=== PATIENT | female | born 1985 | race Two or more races ===

== ENCOUNTER 2018-04-04 17:06 | Inpatient (IN) | payer MEDICAID, OTHER ==
[~2018-04-04] VITALS: Ht 162.6 cm; Wt 84.7 kg
[2018-04-04] MEDS ORDERED: LABETALOL 5MG/ML, 20ML ONE (17:09)
[2018-04-04 17:26] LABS: BASOPHILS # (AUTO) 0.07 x10^3/uL (0-0.1); BASOPHILS % (AUTO) 1 % (0-1); EOSINOPHILS # (AUTO) 0.07 x10^3/uL (0-0.4); EOSINOPHILS % (AUTO) 1 % (1-7); LYMPHOCYTES # (AUTO) 3.43 x10^3/uL (1-3.4); LYMPHOCYTES % (AUTO) 27 % (22-44); MD NO; MEAN CORPUSCULAR HEMOGLOBIN 30.3 pg (27.0-34.8); MEAN PLATELET VOLUME 7.5 fL (7.4-10.4); MONOCYTES # (AUTO) 0.32 x10^3/uL (0.2-0.8); MONOCYTES % (AUTO) 3 % (2-9); NEUTROPHILS # (AUTO) 9.03 x10^3/uL (1.8-6.8); NEUTROPHILS % (AUTO) 70 % (42-75); PLATELET COUNT 371 x10^3/uL (130-400); RED BLOOD COUNT 5.47 x10^6/uL (3.82-5.3); RED CELL DISTRIBUTION WIDTH 13.4 % (9.6-15.2)
[2018-04-04] MEDS ORDERED: PLEASE ENTER ALLERGIES MC SCH (17:30)
[2018-04-04] MEDS ORDERED: PLEASE ENTER HEIGHT AND WEIGHT MC SCH (17:30)
[2018-04-04] MEDS ORDERED: LABETALOL 5MG/ML, 20ML IVPush ONE ×2 (17:30)
[2018-04-04] MEDS ORDERED: OMNIPAQUE 350 MG/ML, 100ML BOTTLE ONE (17:36)
[2018-04-04 17:41] LABS: INTERNATIONAL NORMALIZED RATIO 0.94 (0.93-1.1); PROTHROMBIN TIME 9.7 Seconds (9.6-11.5)
[2018-04-04] MEDS ORDERED: MECLIZINE CHEWABLE 25 MG TAB ONE (18:29)
[2018-04-04] MEDS ORDERED: MECLIZINE CHEWABLE 25 MG TAB PO ONE (18:30)
[2018-04-04] MEDS ORDERED: SODIUM CHLORIDE 0.9% 1,000 ML IV ONE (19:10)
[2018-04-04] MEDS ORDERED: morphine SULFATE 10 MG/ML, 1ML IVPush PRN (20:00)
[2018-04-04] MEDS ORDERED: ACETAMINOPHEN 650 MG SUPP PR PRN (20:00)
[2018-04-04] MEDS ORDERED: INSTRUCTION SEE COMMENTS XX ONE (20:00)
[2018-04-04] MEDS ORDERED: PROMETHAZINE 25 MG/ML, 1ML IM PRN (20:00)
[2018-04-04] MEDS ORDERED: LABETALOL 5MG/ML, 20ML IV PRN (20:00)
[2018-04-04] MEDS ORDERED: ONDANSETRON 2MG/ML, 2ML IVPush PRN (20:00)
[2018-04-04] MEDS ORDERED: BISACODYL 10 MG SUPP PR PRN (20:00)
[2018-04-04 20:20] VITALS: BP 143/93
[2018-04-04 20:30] LABS: FREE T4 (FREE THYROXINE) 1.05 ng/dL (0.76-1.46); THYROID STIMULATING HORMONE 2.08 mIU/L (0.358-3.740)
[2018-04-04 20:38] LABS: HEMOGLOBIN A1C 6.5 % (4.2-6.3)
[2018-04-04] MEDS: INSULIN LISPRO 100 UNITS/ML, PEN SQ-INSULIN SCH (21:00)
[2018-04-04] MEDS: NICOTINE 7 MG/24 HR PATCH.TD24 TD SCH (21:18)
[2018-04-04] MEDS ORDERED: SODIUM CHLORIDE 0.9% 1,000 ML IV SCH (21:30)
[2018-04-05 00:25] VITALS: BP 142/91
[2018-04-05 04:00] VITALS: BP 143/92
[2018-04-05] MEDS: LABETALOL 5MG/ML, 20ML IV PRN ×3 (04:38→12:38)
[2018-04-05 04:40] LABS: MEAN CORPUSCULAR HEMOGLOBIN 30.1 pg (27.0-34.8); MEAN CORPUSCULAR HGB CONC 33.7 g/dL (32.4-35.8); MEAN CORPUSCULAR VOLUME 89.2 fL (80-100); MEAN PLATELET VOLUME 7.4 fL (7.4-10.4); PLATELET COUNT 390 x10^3/uL (130-400); RED BLOOD COUNT 4.87 x10^6/uL (3.82-5.3); RED CELL DISTRIBUTION WIDTH 13.4 % (9.6-15.2)
[2018-04-05 04:47] LABS: MICROSCOPIC INDICATED
[2018-04-05 04:47] LABS: ALANINE AMINOTRANSFERASE 24 U/L (12-78); ALBUMIN 3.2 g/dL (3.4-5.0); ANION GAP 9 mmol/L (5-15); CHLORIDE 110 mmol/L (98-107); CHOLESTEROL, TOTAL 172 mg/dL (140-239)
[2018-04-05 04:50] LABS: AMPHETAMINE SCREEN, URINE Positive (Negative); BARBITURATE SCREEN, URINE Negative (Negative); BENZODIAZEPINE SCREEN, URINE Negative (Negative); CANNABINOID SCREEN, URINE Negative (Negative); COCAINE SCREEN, URINE Negative (Negative); METHADONE SCREEN, URINE Negative (Negative); OPIATE SCREEN, URINE Negative (Negative)
[2018-04-05 04:50] LABS: ALKALINE PHOSPHATASE 51 U/L (45-117); BILIRUBIN,TOTAL 0.8 mg/dL (0.2-1.0); CHOL/HDL RATIO 4.5; HDL CHOL % 22 % (28-40); HDL CHOLESTEROL (DIRECT) 38 mg/dL (40-60); LDL CHOLESTEROL,CALCULATED 97 mg/dL (54-169); LDL/HDL RATIO 2.6 (0.5-3.0); TOTAL PROTEIN 6.9 g/dL (6.4-8.2); TRIGLYCERIDES 187 mg/dL (50-200); VLDL CHOLESTEROL 37 mg/dL (0-25)
[2018-04-05 05:16] LABS: BASOPHILS # (AUTO) 0.01 x10^3/uL (0-0.1); BASOPHILS % (AUTO) 0 % (0-1); EOSINOPHILS # (AUTO) 0.04 x10^3/uL (0-0.4); EOSINOPHILS % (AUTO) 0 % (1-7); LYMPHOCYTES # (AUTO) 4.03 x10^3/uL (1-3.4); LYMPHOCYTES % (AUTO) 21 % (22-44); MD SCAN; MONOCYTES # (AUTO) 0.71 x10^3/uL (0.2-0.8); MONOCYTES % (AUTO) 4 % (2-9); NEUTROPHILS # (AUTO) 14.16 x10^3/uL (1.8-6.8); NEUTROPHILS % (AUTO) 75 % (42-75)
[2018-04-05] MEDS: INSULIN LISPRO 100 UNITS/ML, PEN SQ-INSULIN SCH ×2 (07:00→12:30)
[2018-04-05] MEDS: LISINOPRIL 20 MG TABLET PO SCH ×2 (15:42→22:30)
[2018-04-05] MEDS: hydrALAzine 20 MG/ML, 1ML IV PRN (15:45)
[2018-04-05 22:18] LABS: MICROSCOPIC INDICATED
[2018-04-05] MEDS: NICOTINE 7 MG/24 HR PATCH.TD24 TD SCH (22:30)
[2018-04-05] MEDS: ATORVASTATIN 80 MG TABLET PO SCH (22:30)
[2018-04-06] MEDS ORDERED: LIDOCAINE-MPF 1%, 2ML ONE (02:52)
[2018-04-06] MEDS: CEFTRIAXONE 1,000 MG IM SCH (03:08)
[2018-04-06 04:00] VITALS: BP 148/96
[2018-04-06 04:33] LABS: BASOPHILS % (AUTO) 1 % (0-1); EOSINOPHILS # (AUTO) 0.11 x10^3/uL (0-0.4); EOSINOPHILS % (AUTO) 1 % (1-7); LYMPHOCYTES # (AUTO) 4.73 x10^3/uL (1-3.4); LYMPHOCYTES % (AUTO) 34 % (22-44); MD NO; MEAN CORPUSCULAR HEMOGLOBIN 30.5 pg (27.0-34.8); MEAN CORPUSCULAR HGB CONC 34.2 g/dL (32.4-35.8); MEAN CORPUSCULAR VOLUME 89.3 fL (80-100); MEAN PLATELET VOLUME 7.2 fL (7.4-10.4); MONOCYTES # (AUTO) 0.58 x10^3/uL (0.2-0.8); MONOCYTES % (AUTO) 4 % (2-9); NEUTROPHILS # (AUTO) 8.42 x10^3/uL (1.8-6.8); NEUTROPHILS % (AUTO) 60 % (42-75); PLATELET COUNT 383 x10^3/uL (130-400); RED BLOOD COUNT 5.05 x10^6/uL (3.82-5.3); RED CELL DISTRIBUTION WIDTH 14.2 % (9.6-15.2)
[2018-04-06 04:43] LABS: ALANINE AMINOTRANSFERASE 24 U/L (12-78); ALBUMIN 3.3 g/dL (3.4-5.0); ANION GAP 7 mmol/L (5-15); CALCIUM 8.4 mg/dL (8.5-10.1); CHLORIDE 111 mmol/L (98-107); CREATININE 0.86 mg/dL (0.55-1.02)
[2018-04-06 04:45] LABS: ALKALINE PHOSPHATASE 52 U/L (45-117); BILIRUBIN,TOTAL 0.4 mg/dL (0.2-1.0); TOTAL PROTEIN 7.1 g/dL (6.4-8.2)
[2018-04-06] MEDS: AMLODIPINE 5 MG TABLET PO SCH (09:36)
[2018-04-06] MEDS: LISINOPRIL 20 MG TABLET PO SCH ×2 (09:36→20:55)
[2018-04-06 11:48] VITALS: BP 150/103
[2018-04-06 13:59] VITALS: BP 139/89
[2018-04-06 19:16] VITALS: BP 171/109
[2018-04-06 19:38] VITALS: BP 156/97
[2018-04-06] MEDS: ATORVASTATIN 80 MG TABLET PO SCH (20:54)
[2018-04-06] MEDS: NICOTINE 7 MG/24 HR PATCH.TD24 TD SCH (20:54)
[2018-04-07 02:16] VITALS: BP 157/93
[2018-04-07] MEDS: CEFTRIAXONE 1,000 MG IM SCH (03:07)
[2018-04-07 07:20] VITALS: BP 156/102
[2018-04-07] MEDS: AMLODIPINE 5 MG TABLET PO SCH (08:18)
[2018-04-07] MEDS: LISINOPRIL 10 MG TABLET PO SCH ×2 (08:19→20:25)
[2018-04-07 10:38] VITALS: BP 157/127
[2018-04-07] MEDS: hydrALAzine 20 MG/ML, 1ML IV PRN (10:39)
[2018-04-07 11:15] VITALS: BP 168/91
[2018-04-07 14:45] VITALS: BP 154/96
[2018-04-07 20:00] VITALS: BP 161/97
[2018-04-07] MEDS: NICOTINE 7 MG/24 HR PATCH.TD24 TD SCH (20:24)
[2018-04-07] MEDS: ATORVASTATIN 80 MG TABLET PO SCH (20:25)
[2018-04-08 02:00] VITALS: BP 152/89
[2018-04-08] MEDS: CEFTRIAXONE 1,000 MG IM SCH (02:24)
[2018-04-08 07:55] VITALS: BP 149/82
[2018-04-08] MEDS: LISINOPRIL 10 MG TABLET PO SCH (08:36)
[2018-04-08] MEDS: AMLODIPINE 5 MG TABLET PO SCH (08:36)
[2018-04-08 13:44] VITALS: BP 142/78
[2018-04-08 19:47] VITALS: BP 130/73
[2018-04-08] MEDS: ATORVASTATIN 80 MG TABLET PO SCH (20:13)
[2018-04-08] MEDS: NICOTINE 7 MG/24 HR PATCH.TD24 TD SCH (20:14)
[2018-04-08] MEDS: LISINOPRIL 20 MG TABLET PO SCH (20:14)
[2018-04-09 02:10] VITALS: BP 116/72
[2018-04-09 07:15] VITALS: BP 120/78
[2018-04-09] MEDS: AMLODIPINE 5 MG TABLET PO SCH (09:10)
[2018-04-09] MEDS: LISINOPRIL 20 MG TABLET PO SCH ×2 (09:10→20:03)
[2018-04-09] MEDS: CEFTRIAXONE 1,000 MG IM SCH (09:11)
[2018-04-09 13:47] VITALS: BP 126/74
[2018-04-09 19:52] VITALS: BP 131/80
[2018-04-09] MEDS: ATORVASTATIN 80 MG TABLET PO SCH (20:03)
[2018-04-09] MEDS: NICOTINE 7 MG/24 HR PATCH.TD24 TD SCH (20:03)
[2018-04-10 00:09] VITALS: BP 110/72
[2018-04-10 03:58] VITALS: BP 108/68
[2018-04-10 07:03] VITALS: BP 110/73
[2018-04-10] MEDS: CEFTRIAXONE 1,000 MG IM SCH ×2 (08:16→09:44)
[2018-04-10] MEDS: AMLODIPINE 5 MG TABLET PO SCH (08:17)
[2018-04-10] MEDS: LISINOPRIL 20 MG TABLET PO SCH ×2 (08:17→21:35)
[2018-04-10] MEDS ORDERED: BISACODYL 5 MG EC TABLET PO PRN (09:00)
[2018-04-10 13:23] VITALS: BP 114/76
[2018-04-10 21:01] VITALS: BP 115/76
[2018-04-10] MEDS: ATORVASTATIN 80 MG TABLET PO SCH (21:35)
[2018-04-10] MEDS: NICOTINE 7 MG/24 HR PATCH.TD24 TD SCH (21:36)
[2018-04-11 02:02] VITALS: BP 105/67
[2018-04-11 07:24] VITALS: BP 114/75
[2018-04-11] MEDS: AMLODIPINE 5 MG TABLET PO SCH (09:10)
[2018-04-11] MEDS: LISINOPRIL 20 MG TABLET PO SCH ×2 (09:10→20:26)
[2018-04-11 14:27] VITALS: BP 118/69
[2018-04-11 19:49] VITALS: BP 105/69
[2018-04-11] MEDS: NICOTINE 7 MG/24 HR PATCH.TD24 TD SCH (20:31)
[2018-04-11] MEDS: ATORVASTATIN 80 MG TABLET PO SCH (20:31)
[2018-04-12 00:47] VITALS: BP 99/62
[2018-04-12 07:57] VITALS: BP 114/75
[2018-04-12] MEDS: AMLODIPINE 5 MG TABLET PO SCH (09:03)
[2018-04-12] MEDS: LISINOPRIL 20 MG TABLET PO SCH ×2 (09:04→20:39)
[2018-04-12 13:20] VITALS: BP 123/80
[2018-04-12 18:47] VITALS: BP 155/77
[2018-04-12] MEDS: NICOTINE 7 MG/24 HR PATCH.TD24 TD SCH (20:39)
[2018-04-12] MEDS: ATORVASTATIN 80 MG TABLET PO SCH (20:39)
[2018-04-13 00:23] VITALS: BP 121/78
[2018-04-13 07:09] VITALS: BP 124/82
[2018-04-13 09:00] VITALS: BP 136/90
[2018-04-13] MEDS: LISINOPRIL 20 MG TABLET PO SCH ×2 (09:01→20:18)
[2018-04-13] MEDS: AMLODIPINE 5 MG TABLET PO SCH (09:01)
[2018-04-13 12:26] VITALS: BP 132/88
[2018-04-13 19:17] VITALS: BP 142/81
[2018-04-13] MEDS: NICOTINE 7 MG/24 HR PATCH.TD24 TD SCH (20:18)
[2018-04-13] MEDS: ATORVASTATIN 80 MG TABLET PO SCH (20:18)
[2018-04-14 02:00] VITALS: BP 124/75
[2018-04-14 07:44] VITALS: BP 116/76
[2018-04-14] MEDS: LISINOPRIL 20 MG TABLET PO SCH ×2 (08:22→22:51)
[2018-04-14] MEDS: AMLODIPINE 5 MG TABLET PO SCH (09:06)
[2018-04-14 12:39] VITALS: BP 142/89
[2018-04-14 20:00] VITALS: BP 138/84
[2018-04-14] MEDS: ATORVASTATIN 80 MG TABLET PO SCH (22:49)
[2018-04-14] MEDS: NICOTINE 7 MG/24 HR PATCH.TD24 TD SCH (22:50)
[2018-04-15 02:00] VITALS: BP 114/74
[2018-04-15 07:01] VITALS: BP 139/87
[2018-04-15] MEDS: LISINOPRIL 20 MG TABLET PO SCH ×2 (08:50→21:34)
[2018-04-15] MEDS: AMLODIPINE 5 MG TABLET PO SCH (08:51)
[2018-04-15 12:33] VITALS: BP 155/92
[2018-04-15 19:57] VITALS: BP 130/76
[2018-04-15] MEDS ORDERED: LISINOPRIL 10 MG TABLET ONE ×2 (21:20→21:21)
[2018-04-15] MEDS: ATORVASTATIN 80 MG TABLET PO SCH (21:34)
[2018-04-15] MEDS: NICOTINE 7 MG/24 HR PATCH.TD24 TD SCH (21:34)
[2018-04-16 02:00] VITALS: BP 120/77
[2018-04-16 07:10] VITALS: BP 120/178
[2018-04-16] MEDS ORDERED: LISINOPRIL 10 MG TABLET ONE (08:06)
[2018-04-16] MEDS: AMLODIPINE 5 MG TABLET PO SCH (08:10)
[2018-04-16] MEDS: LISINOPRIL 20 MG TABLET PO SCH (08:10)
[2018-04-16] MEDS ORDERED: ATOR-2 PO (08:27)
[2018-04-16] MEDS ORDERED: AMLO5TAB2 PO (08:27)
[2018-04-16] MEDS ORDERED: NICO-485 TD (08:27)
[2018-04-16] MEDS ORDERED: BISA5TAB5 PO (08:27)
[2018-04-16] MEDS ORDERED: LISI-170 PO (08:27)
[2018-04-16] MEDS ORDERED: METF500T PO (09:39)
== END 2018-04-16 13:27 | DRG 64 ==
LOC: ED 18:56 → EDIP 19:01 → CCU 20:05 → 3NE 04-06 11:43 → 4WST 04-06 13:51
PROVIDERS: ADMIT Internal Medicine; ATTEND Internal Medicine
DX: I61.8 Other nontraumatic intracerebral hemorrhage (principal); Q28.3 Other malformations of cerebral vessels; G91.1 Obstructive hydrocephalus; I16.1 Hypertensive emergency; E11.65 Type 2 diabetes mellitus with hyperglycemia; E66.9 Obesity, unspecified; E78.5 Hyperlipidemia, unspecified; F15.10 Other stimulant abuse, uncomplicated; F17.210 Nicotine dependence, cigarettes, uncomplicated; I10 Essential (primary) hypertension; Z68.34 Body mass index [BMI] 34.0-34.9, adult; Z82.3 Family history of stroke; Z83.3 Family history of diabetes mellitus; Z91.14 Patient's other noncompliance with medication regimen
CPT/HCPCS: 36415; 70450; 70496; 70498; 70551; 80047; 80053; 80061; 80307; 81001; 82962; 83036; 83735; 84100; 84439; 84443; 85025; 85610; 85730; 87081; 87086; 93005; 93306; 96374; 96375; 99291; J0696; J7060; Q9967; 92523-GN; J0360; J7030; J7050